=== PATIENT | female | born 1930 | race Caucasian/White ===

== ENCOUNTER 2016-09-23 10:55 | Inpatient (IN) | payer MEDICARE ==
[~2016-09-23] VITALS: Ht 160 cm; Wt 83.9 kg
--- NOTE | ~2016-09-23 | CON ---
[place], [place] REPORT OF CONSULTATION NAME: LUMA COLORADO UNIT #: [id number] ROOM: 528 DOCTOR: LYUBOV MILES ED.D) BIRTHDATE: [birth year] DOS: 09/26/2016 HISTORY: This 86-year-old female was discharged prior to my arriving at the hospital. Apparently, she became confused during the night, last night, but cleared up very quickly and was discharged home. LYUBOV MILES ED.D CM:CONSTR:REPORT OF CONSULTATION 1344 09/26/16 1512 interface
--- NOTE | ~2016-09-23 | PR ---
[place], [place] PROGRESS NOTE [facility]: [facility]AD[id number] UNIT #: [id number] ROOM: 528 DOCTOR: ORA CHILEL MD BIRTHDATE: [birth year] DOS: 09/25/2016 ADDENDUM I was able to review the stress test images on the patient. 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 The remainder of her left ventricle is well perfused and she has normal left ventricular size and function without any high risk characteristics. Specifically, she does not have transient left ventricular cavity dilation. Given her age and renal insufficiency, I think that medical management is the safest route. I have started her on a beta griselda and I will adjust the dose today. She should continue to receive appropriate therapy for her colitis in the meantime. I thank the hospitalist physicians for asking our advice regarding her care. ORA CHILEL MD CM:PNTRANS [id number] ORA CHILEL MD 09/28/16 1050 interface
--- NOTE | ~2016-09-23 | CON ---
[place], [place] REPORT OF CONSULTATION NAME: [facility] COL[facility]ADO [id number] UNIT #: [id number] ROOM: 528 DOCTOR: ORA CHILEL MD BIRTHDATE: [birth year] DOS: 09/24/2016 CARDIOLOGY CONSULTATION REASON FOR CONSULTATION: Elevated troponin levels. HISTORY OF PRESENT ILLNESS: The patient is an 86-year-old woman whom I initially met in 07/2016 when she presented to the hospital with acute pancreatitis. That hospitalization was complicated by a brief period of atrial fibrillation followed by a short run of wide complex tachycardia. An echocardiogram was unremarkable. It was felt that her symptoms were due to her acute illness and therefore she was not anticoagulated. The patient has done well until the last week or two. She developed abdominal pain followed by uncontrollable diarrhea. She did become somewhat dehydrated. When her pains were intractable and she was having problems with stool incontinence, she was brought to the hospital and was admitted. She has been given fluids, IV and kept n.p.o. and her abdominal pains have improved. She denied any chest discomfort on this occasion, although she has had some epigastric pain. Cardiac biomarkers were obtained and her troponin level has been slightly elevated. The initial troponin was 0.101. Subsequent troponin levels were 0.068, 0.052 and 0.039. She did not have any acute EKG changes, although she does have frequent PVCs on the monitor. Thus far, her evaluation has shown that she does have colitis. The etiology of this is not clear to me. PAST MEDICAL HISTORY: Includes: 1. Acute pancreatitis felt to be due to gallstone pancreatitis 07/2016. 2. Brief episode of atrial fibrillation with rapid ventricular response during the episode of pancreatitis. 3. Essential hypertension. 4. History of hypertensive emergency, resolved. 5. History of gout. 6. History of anxiety and depression. 7. History of eye surgery. 8. Hospitalization 09/2016 with acute colitis. Evaluation in progress. MEDICATIONS: Prior to admission, Combigan eyedrops applied to the eyes daily, Lotemax eyedrops daily, benazepril 10 mg daily, levothyroxine 25 mcg daily, omeprazole 20 mg daily, potassium 10 mEq daily and venlafaxine 75 mg daily. ALLERGIES: The patient lists allergies to CODEINE, TRAMADOL, ACETAMINOPHEN and HYDROCODONE. REVIEW OF SYSTEMS: The patient denies diplopia or loss of vision. She denies focal weakness, lightheadedness or syncope. She denies chest pain or palpitations at this time, although she did have epigastric pain with her pancreatitis. She denies nausea or vomiting now. She denies fevers, chills, but she feels like she has lost some weight lately and has been very thirsty and [place], [place] REPORT OF CONSULTATION NAME: LUMA COLORADO UNIT #: [id number] ROOM: 528 DOCTOR: ORA CHILEL MD BIRTHDATE: [birth year] feeling dehydrated. She denies bleeding from any site, even with her diarrhea. She denies any hematuria. She denies hemoptysis or hematemesis. She denies skin rashes. She denies hot or swollen joints. She denies heat or cold intolerance and denies polydipsia or polyuria. The remainder of the review of systems is negative except as noted above. FAMILY HISTORY: Her father of a heart attack in his 70s. Her mother of old age in her 90s. SOCIAL HISTORY: The patient was a smoker, but quit in the distant past. She does drink 1 glass of wine a day. She lives alone. PHYSICAL EXAMINATION: GENERAL: The patient is an elderly white female who is awake, alert and oriented. VITAL SIGNS: Pulse is 90 and regular with an occasional premature beat. Blood pressure is 124/50. She is afebrile. HEENT: Normocephalic, atraumatic. Extraocular muscles are intact. Sclerae are clear. Pupils are equal, round and react to light. Oral mucosa is moist. Tongue is midline. NECK: Supple. She has no jugular distention. Carotids are full. I heard no bruits. She had no neck or supraclavicular masses. No thyromegaly. LUNGS: Respirations are unlabored. Her chest is clear to auscultation and percussion. She has no presacral edema or chest wall tenderness. HEART: Has a regular rhythm. She has a fourth heart sound, but no third heart sound or murmur. The PMI is not displaced. She has no precordial heave, lift or thrill. ABDOMEN: Soft and normally active without masses, organomegaly or bruits. She is slightly tender in the epigastrium. EXTREMITIES: Showed no clubbing, cyanosis or edema. Peripheral pulses are easily palpated in the feet. LABORATORY DATA: I reviewed her electrocardiogram, which shows sinus rhythm with frequent PVCs. She does have borderline T-wave abnormalities. No acute ST or T-wave changes are seen. Her troponin levels are noted above. Hemoglobin is 11.8, white count 7200, platelet count 262,000. Sodium 140, potassium 3.6, BUN 49, creatinine 1.44. Chest x-ray shows elevation of the right hemidiaphragm with right basilar atelectasis or scarring. There are chronic changes in the lungs, but no acute infiltrates. IMPRESSION: 1. Falling troponin levels. Pattern of troponin elevation is consistent with a recent myocardial injury. The mechanism of the injury is not yet clear, but may represent an acute coronary syndrome, even though the patient has no symptoms. 2. Recent episode of atrial fibrillation. 3. Recent episode of wide complex tachycardia when the patient was acutely ill with pancreatitis. 4. History of hypertension. [place], [place] REPORT OF CONSULTATION NAME: LUMA COLORADO UNIT #: [id number] ROOM: 528 DOCTOR: ORA CHILEL MD BIRTHDATE: [birth year] 5. History of former cigarette abuse. 6. Admission with acute colitis. PLAN: The patient just had an echocardiogram within the last 2 months that showed no acute problems. LV wall motion and systolic function were all normal with an ejection fraction of 70% and only stage 1 diastolic relaxation abnormalities. She had no significant valve abnormalities. I do not believe that it needs to be repeated on this occasion; however, I am concerned that all of these cardiac episodes may be indicative of ischemic heart disease. In order to evaluate her further, I have scheduled her for a pharmacologic myocardial perfusion study. This will be done within the next 24 hours. Further recommendations will depend upon the results of her stress test. Given her renal insufficiency and age, I think we will remain very conservative in her ongoing care, but if she does show very high risk findings, then catheterization may be an appropriate next step. Otherwise, we will treat her medically if at all possible. For now, I will start her on low dose beta griselda and observe her as she is being evaluated for her colitis. I thank the hospitalist physicians for asking our advice regarding her care. ORA CHILEL MD CM:CONSTR:REPORT OF CONSULTATION 0918 09/24/16 1053 interface
--- NOTE | ~2016-09-23 | ST ---
[place], [place] EXERCISE STRESS TEST REPORT NAME: [facility] COLORADO [facility] [id number] UNIT #: [id number] ROOM: 528 DOCTOR: ORA CHILEL MD BIRTHDATE: [birth year] DOS: 09/25/2016 INDICATIONS: Atypical chest pain, elevated troponin, wide complex tachycardia. PROCEDURE: The patient was given a rapid infusion of regadenoson 0.4 mg intravenously followed by a saline flush. She experienced some nausea, but had no other symptoms. Her resting heart rate of 71 gagandeep to 83. The resting blood pressure 126/64 fell to 120/58. Her resting electrocardiogram showed sinus rhythm with an occasional PVC. Aside from her tachycardic response, no other changes occurred on the cardiogram during the infusion. Symptoms resolved spontaneously. Forty seconds after the infusion of regadenoson, she was given radionuclide intravenously. IMPRESSION: 1. Well tolerated infusion of regadenoson. 2. Radionuclide injected. Please see the separate imaging report for further details of the patient's stress test results. ORA CHILEL MD CM:STRESS:EXERCISE STRESS TEST REPORT 1025 [id number] ORA CHILEL MD
--- NOTE | ~2016-09-23 | PR ---
[place], [place] PROGRESS NOTE NAME: LUMA COLORADO [facility] #: [id number] UNIT #: [id number] ROOM: 528 DOCTOR: ORA CHILEL MD BIRTHDATE: [birth year] DOS: 09/25/2016 CARDIOLOGY PROGRESS NOTE SUBJECTIVE: The patient was seen today 09/25/2016, in the Cardiology Department just prior to her stress test. She is an 86-year-old woman who recently had pancreatitis. During that episode which occurred in 07/2016, she did have a brief period of atrial fibrillation. An echocardiogram showed normal left ventricular function and it was felt that her problems were due to her acute illness. She was not anticoagulated and did well until the last few days when she began having nausea and diarrhea. Her evaluation in the hospital did show colitis. However, in addition, she did have an elevation in troponin consistent with a recent myocardial injury. In order to determine whether she does have significant underlying coronary disease, a stress test is being performed. The patient states that she has had some more abdominal pain overnight, but it is not as severe as it was prior to admission. She denies any chest pain or dyspnea. PHYSICAL EXAMINATION: VITAL SIGNS: Today, her pulse is 71 and regular, blood pressure is 126/64. NECK: Supple. She has no jugular distention. Carotids are full. LUNGS: Respirations are unlabored. CHEST: Clear to auscultation and percussion. HEART: Has a regular rhythm with an occasional premature beat. She has a fourth heart sound, but no third heart sound. ABDOMEN: Soft. EXTREMITIES: Showed no edema. IMPRESSION: 1. Elevated troponin in a pattern consistent with a recent myocardial injury, mechanism of the injury is not yet clear. 2. Recent episode of atrial fibrillation, which occurred during an acute pancreatitis. 3. Recent episode of wide complex tachycardia also during acute pancreatitis. 4. History of hypertension. 5. History of previous cigarette abuse. 6. Admission on this occasion with acute colitis. PLAN: We will proceed with a pharmacologic stress test. As noted previously, we will try to remain very conservative in her evaluation and management, but I think that the stress test will help us determine the cause of her problems and give us guidance as to how she should be treated in the future. We thank the hospitalist physicians for asking our advice regarding her care. [place], [place] PROGRESS NOTE NAME: LUMA COLORADO UNIT #: [id number] ROOM: 528 DOCTOR: ORA CHILEL MD BIRTHDATE: [birth year] ORA CHILEL MD CM:CRYSTAL 1020 1059 ORA CHILEL MD 09/25/16 1457 interface
[~2016-09-23 10:55] MED LIST: AMOXICILLIN500 MG PO; BENAZEPRIL HCL PO; BENAZEPRIL HYDR1 TA1 PO; COLCHICINE0.6 MG PO; COMBIGAN 0.2%-0.5 ML OP; CYMBALTA60 MG PO; EFFEXOR-XR75 MG PO; FLONASE 0.05% 121 EA NAS; INDOCIN25 MG PO; K-Lyte/Cl25 MEQ PO; LIDODERM5% TP; LOPRESSOR25 MG PO; LOTEMAX OP; LUNESTA1 MG PO; OMEPRAZOLE D/R20 MG PO; SYNTHROID,LEVO75 MCG PO; TRIAZOLAM0.25 MG PO; VENLAFAXINE HYD75 MG PO; VICODIN 5/500 505 MG PO; VIMOVO; VIMOVO 20 MG PO; Vicodin 5/500 505 MG PO
[2016-09-23] MEDS ORDERED: VENLAFAXINE75 M1 PO (11:03)
[2016-09-23] MEDS ORDERED: POTASSIUM CHLO10 ME5 PO (11:03)
[2016-09-23] MEDS ORDERED: OMEPRAZOLE20 M2 PO (11:04)
[2016-09-23] MEDS ORDERED: LOTEMAX5 GM OP (11:04)
[2016-09-23] MEDS ORDERED: SYNTHROID25 MCG PO (11:04)
[2016-09-23] MEDS ORDERED: COMBIGAN 0.2%-010 ML OP (11:05)
[2016-09-23] MEDS ORDERED: BENAZEPRIL10 MG PO (11:05)
[2016-09-23 11:53] LABS: HEMATOCRIT 43.2 % (37.0-47.0); HEMOGLOBIN 14.5 g/dl (12.0-16.0); MEAN CELL VOLUME 92.1 fl (81.0-99.0); MEAN CORPUSCULAR HGB 30.9 pg (27.0-31.0); MEAN CORPUSCULAR HGB CONC 33.6 g/dl (33.0-37.0); MEAN PLATELET VOLUME 9.7 fl (9.6-12.3); PLATELET COUNT AUTOMATED 327 10*3/uL (130-400); RED BLOOD COUNT 4.69 10*6/uL (4.10-5.10); RED CELL DISTRI WIDTH 14.5 % (0-14.5)
[2016-09-23 12:11] LABS: ALBUMIN 2.7 gm/dl (3.1-4.5); BILIRUBIN, TOTAL 0.7 mg/dl (0.2-1.0); C-REACTIVE PROTEIN 15.8 MG/DL (0-0.3); CKMB 1.5 ng/ml (0.5-3.6); MAGNESIUM 2.4 mg/dL (1.5-2.1); TOTAL PROTEIN 6.3 gm/dL (6.4-8.2)
[2016-09-23 12:13] LABS: TROPONIN I 0.101 ng/ml (<0.045)
[2016-09-23 12:18] LABS: BASOPHIL # 0.1 10*3/uL (0-0.1); BASOPHILS 1 % (0-1); LYMPHOCYTE # 0.8 10*3/uL (1.3-4.4); MONOCYTE # 1.1 10*3/uL (0.1-1.0); NEUTROPHILS 82 % (47-73); PLATELET SUFFICIENCY NORMAL (NORMAL); TOTAL CELLS COUNTED 100 #CELLS
[2016-09-23 13:47] LABS: LA>2 REFLEX 2 HR DRAW NOW
[2016-09-23 13:49] LABS: BILIRUBIN 2+ (NEGATIVE); BLOOD NEGATIVE (NEGATIVE); CLARITY SL CLOUDY (CLEAR); COLOR YELLOW (YELLOW); GLUCOSE NEGATIVE (NEGATIVE); KETONE TRACE (NEGATIVE); LEUKO ESTERASE NEGATIVE (NEGATIVE); NITRITE POSITIVE (NEGATIVE); PROTEIN 1+ (NEGATIVE); SPECIFIC GRAVITY >= 1.030 (1.005-1.030)
[2016-09-23 13:56] LABS: BACTERIA 4+; RBC 0-2 rbc/hpf (0-2); URINE REFLEX COMMENT YES (NO)
[2016-09-24 06:46] LABS: MEAN CELL VOLUME 93.5 fl (81.0-99.0); MEAN CORPUSCULAR HGB 30.7 pg (27.0-31.0); MEAN CORPUSCULAR HGB CONC 32.9 g/dl (33.0-37.0); MEAN PLATELET VOLUME 10.1 fl (9.6-12.3); PLATELET COUNT AUTOMATED 262 10*3/uL (130-400); RED BLOOD COUNT 3.84 10*6/uL (4.10-5.10); RED CELL DISTRI WIDTH 14.9 % (0-14.5); WHITE BLOOD COUNT 7.2 10*3/uL (4.8-10.8)
[2016-09-24 06:49] LABS: HEMATOCRIT 35.9 % (37.0-47.0); HEMOGLOBIN 11.8 g/dl (12.0-16.0)
[2016-09-24 07:12] LABS: ALBUMIN 2.1 gm/dl (3.1-4.5); BILIRUBIN, TOTAL 0.3 mg/dl (0.2-1.0); MAGNESIUM 2.3 mg/dL (1.5-2.1); PHOSPHOROUS 3.1 mg/dL (2.5-4.9); POTASSIUM 3.6 mmol/L (3.5-5.1); TOTAL PROTEIN 5.2 gm/dL (6.4-8.2)
[2016-09-24 07:20] LABS: THYROID STIM HORMONE (HS) 1.67 uIU/ml (0.358-4.75)
[2016-09-24 08:06] LABS: BASOPHIL # 0.1 10*3/uL (0-0.1); BASOPHILS 1 % (0-1); BURR CELLS MODERATE; LYMPHOCYTE # 0.5 10*3/uL (1.3-4.4); METAMYELOCYTES 2 % (0-0); MONOCYTE # 0.3 10*3/uL (0.1-1.0); NEUTROPHIL # 6.2 10*3/uL (2.3-7.9); NEUTROPHILS 86 % (47-73); PLATELET SUFFICIENCY NORMAL (NORMAL); TOTAL CELLS COUNTED 100 #CELLS
[2016-09-25 06:34] LABS: HEMATOCRIT 34.5 % (37.0-47.0); HEMOGLOBIN 11.3 g/dl (12.0-16.0); MEAN CELL VOLUME 93.5 fl (81.0-99.0); MEAN CORPUSCULAR HGB 30.6 pg (27.0-31.0); MEAN CORPUSCULAR HGB CONC 32.8 g/dl (33.0-37.0); NUCLEATED RED BLOOD CELL 0.3 % (0.0-0.0); PLATELET COUNT AUTOMATED 237 10*3/uL (130-400); RED BLOOD COUNT 3.69 10*6/uL (4.10-5.10); RED CELL DISTRI WIDTH 14.5 % (0-14.5); WHITE BLOOD COUNT 7.8 10*3/uL (4.8-10.8)
[2016-09-25 07:12] LABS: EOSINOPHIL # 0.1 10*3/uL (0-0.4); EOSINOPHILS 1 % (1-4); LYMPHOCYTE # 0.9 10*3/uL (1.3-4.4); METAMYELOCYTES 1 % (0-0); MONOCYTE # 0.8 10*3/uL (0.1-1.0); NEUTROPHILS 77 % (47-73); TOTAL CELLS COUNTED 100 #CELLS
[2016-09-25 07:13] LABS: BURR CELLS FEW; PLATELET SUFFICIENCY NORMAL (NORMAL)
[2016-09-26] MEDS ORDERED: COREG6.25 MG PO (09:47)
== END 2016-09-26 13:25 | disposition home health service (06) | DRG 871 ==
LOC: ED 10:55 → EDHOLD 14:52 → 5E 14:52
PROVIDERS: Emergency Medicine; Student in an Organized Health Care Education/Training Program
PROC: 3E033HZ Introduction of Radioactive Substance into Peripheral Vein, Percutaneous Approach (ICD-10-PCS; principal; 2016-09-25)
PROC: 4A02XM4 Measurement of Cardiac Total Activity, External Approach (ICD-10-PCS; principal; 2016-09-25)
DX: A41.9 Sepsis, unspecified organism (principal); K85.90 Acute pancreatitis without necrosis or infection, unspecified; N17.0 Acute kidney failure with tubular necrosis; E86.0 Dehydration; N39.0 Urinary tract infection, site not specified; I48.91 Unspecified atrial fibrillation; K52.9 Noninfective gastroenteritis and colitis, unspecified; R73.9 Hyperglycemia, unspecified; I10 Essential (primary) hypertension; Z87.891 Personal history of nicotine dependence; Z82.49 Family history of ischemic heart disease and other diseases of the circulatory system; Z88.6 Allergy status to analgesic agent; Z88.8 Allergy status to other drugs, medicaments and biological substances; Z79.899 Other long term (current) drug therapy